=== PATIENT | female | born 1965 | race African-American/Black ===

== ENCOUNTER 2017-05-27 18:06 | Emergency (ER) | payer SELFPAY ==
[~2017-05-27] VITALS: Ht 172.7 cm; Wt 65.0 kg
[~2017-05-27 18:06] MED LIST: CEPH500C3 PO; Z.0.NO CURRENT MEDS
[2017-05-27 18:09] VITALS: BP 149/99; PULSE 103; RESP 18; TEMP 98.8; O2SAT 99
[2017-05-27] MEDS ORDERED: BACT800T5 PO (20:05)
--- NOTE | 2017-05-27 20:06 | PD ---
HPI . Abscess to right axilla Chief Complaint: Skin Problem Time Seen by Provider: 19:59 Travel History International Travel<30 days: No Contact w/Intl Traveler<30days: No Traveled to known affect area: No History of Present Illness HPI 51-year-old female presents to the emergency department for evaluation of abscess to right axilla that she first noticed a couple days ago. The abscess is a large approximately 3 cm x 3 cm with fluctuation and erythema. Patient denies any other physiological problem at this time. He denies any major medical history. Patient does not take any daily medications. She denies any chest pain, shortness breath, nausea, vomiting, diarrhea, abdominal pain, fever , chills and malaise. PFSH Past Medical History Medical History: Denies Significant Hx Diminished Hearing: No ?: Not Menopausal: No : 0 Past Surgical History Surgical History: No Previous Surgery Social History Alcohol Use: Yes (EVERY OTHER DAY) Tobacco Use: Yes (1 OR 2 CIGARETTES EVERY OTHER DAY) Substance Use: No Allergies-Medications (Allergen,Severity, Reaction): Coded Allergies: No Known Allergies (Verified , 05/04/12) Reported Meds & Prescriptions Reported Meds & Active Scripts Active Cephalexin 500 Mg Cap 500 Mg PO QID Percocet (Oxycodone-Acetaminophen) 5-325 mg Tab 1 Tab PO Q6H PRN Bactrim DS (Sulfamethoxazole-Trimethoprim) 800-160 Mg Tab 1 Tab PO BID 7 Days Review of Systems Except as stated in HPI: all other systems reviewed are Neg Physical Exam Narrative GENERAL: Well-nourished well-developed 51-year-old female in no acute distress SKIN: 3 cm x 3 cm fluctuation with erythema under the right axilla HEAD: Atraumatic. Normocephalic. EYES: Pupils equal and round. No scleral icterus. No injection or drainage. ENT: No nasal bleeding or discharge. Mucous membranes pink and moist. NECK: Trachea midline. No JVD. CARDIOVASCULAR: Regular rate and rhythm. No murmur appreciated. RESPIRATORY: No accessory muscle use. Clear to auscultation. Breath sounds equal bilaterally. GASTROINTESTINAL: Abdomen soft, non-tender, nondistended. Hepatic and splenic margins not palpable. MUSCULOSKELETAL: No obvious deformities. No clubbing. No cyanosis. No edema. NEUROLOGICAL: Awake and alert. No obvious cranial nerve deficits. Motor grossly within normal limits. Normal speech. PSYCHIATRIC: Appropriate mood and affect; insight and judgment normal. Data Data Last Documented VS Vital Signs Date Time Temp Pulse Resp B/P (MAP) Pulse Ox O2 Delivery O2 Flow Rate FiO2 05/27/17 18:09 98.8 103 18 149/99 (116) 99 Room Air Orders Orders Wound Culture And Gram Stain (05/27/17 20:07) Sulfamet-Trimeth Ds 800-160 Mg (Bactrim (05/27/17 20:45) Cephalexin (Keflex) (05/27/17 20:45) Oxycodone-Acetamin 5-325 Mg (Percocet (05/27/17 20:45) MDM Medical Decision Making Medical Screen Exam Complete: Yes Emergency Medical Condition: Yes Differential Diagnosis Differential diagnoses include but are not limited to abscess, cellulitis, folliculitis Narrative Course 51-year-old female presents to the emergency department for evaluation of abscess under the right axilla. I&D was performed. Please see my procedural narrative. Patient will be discharged home with a prescription for Bactrim, Keflex and Percocet and instructions to apply warm moist compresses and return to the emergency department in 2 days for wound recheck. Procedures Procedure Narrative INCISION AND DRAINAGE OF ABSCESS: The area was prepped and was sterilely draped. A subcutaneous wheal of 1 % Xylocaine with a total number 15 mL was used to anesthetize the area properly. A number 11 scalpel was used to make a 0.5cm incision across the area of the abscess. The abscess was partially drained. A large amount of foul-smelling purulent drainage came out. Patient became hysterical and complained the procedures to painful. Patient refused to allow more Xylocaine to be injected stating it hurt too bad. Patient stated she did not want to continue with the procedure even if we gave her additional pain medication. Patient states she will apply warm compresses, take antibiotics as prescribed and return to the emergency department in 48 hours for reevaluation. Diagnosis Primary Impression: Abscess Additional Impression: Encounter for incision and drainage procedure Referrals: Primary Care Physician Patient Instructions: Abscess Incision and Drainage (DC), General Instructions Additional Instructions: Please return to emergency department if your symptoms return or worsen. Follow up with your primary care provider. Take medications as prescribed.s Med/Other Pt SpecificInfo: Prescription(s) given Scripts Cephalexin (Cephalexin) 500 Mg Cap 500 MG PO QID for Infection, #30 CAP 0 Refills Prov: Mahin Contreras MD 05/27/17 Oxycodone-Acetaminophen (Percocet) 5-325 mg Tab 1 TAB PO Q6H Y for PAIN, #15 TAB 0 Refills Prov: Mahin Contreras MD 05/27/17 Sulfamethoxazole-Trimethoprim (Bactrim DS) 800-160 Mg Tab 1 TAB PO BID for Infection for 7 Days, #14 TAB 0 Refills Prov: Alma Jacobsen 05/27/17 Disposition: 01 DISCHARGE HOME Condition: Stable Alma Jacobsen May 27, 2017 20:06
[2017-05-27] MEDS ORDERED: CEPH500C PO (20:41)
[2017-05-27] MEDS ORDERED: PERC5TAB12 PO (20:41)
[2017-05-27] MEDS ORDERED: CEPHALEXIN MONOHYDRATE 500 MG CAP PO ONE (20:45)
[2017-05-27] MEDS ORDERED: oxyCODONE/ACETAMINOPHEN 5 MG/325 MG TAB PO ONE (20:45)
[2017-05-27] MEDS ORDERED: SULFAMETHOXAZOLE-TRIMETHOPRIM DS 800-160 MG TAB PO ONE (20:45)
== END 2017-05-27 21:04 | disposition home or self-care (01) ==
LOC: NEPD 18:06
DX: L02.411 Cutaneous abscess of right axilla (principal)
CPT/HCPCS: 10060; 86403; 87070; 87205